=== PATIENT | female | born 1965 | race African-American/Black ===

== ENCOUNTER 2021-01-03 22:17 | Emergency (ER) | payer OTHER ==
[~2021-01-03] VITALS: Ht 170.2 cm; Wt 74.0 kg
[2021-01-03] MEDS ORDERED: ACETAMINOPHEN 325MG TABLET PO ONE (23:15)
[2021-01-04] MEDS ORDERED: NAPROXEN 375MG TABLET PO ONE (00:15)
[2021-01-04] MEDS ORDERED: NAPROXEN 250MG TABLET PO NR (00:30)
[2021-01-04] MEDS ORDERED: NAPR-679 MT (00:40)
[2021-01-04 01:00] VITALS: BP 120/65
== END 2021-01-04 01:00 | disposition home or self-care (01) ==
LOC: ER 22:17
DX: S00.83XA Contusion of other part of head, initial encounter (principal); I10 Essential (primary) hypertension; Z88.6 Allergy status to analgesic agent; X58.XXXA Exposure to other specified factors, initial encounter; Y93.89 Activity, other specified; Y92.89 Other specified places as the place of occurrence of the external cause; Y99.8 Other external cause status
CPT/HCPCS: 99282